=== PATIENT | female | born 1950 | race Caucasian/White ===

== ENCOUNTER → 2017-06-28 | Outpatient (CLI) | payer OTHER ==
[~2017-06-28] MED LIST: ALB18R INH; AMO500 PO; CLI150 PO; ESOM20CA31 PO; LEVO750T44 PO; OMEG-11 PO; PRED20TA6 PO; VITAMIN
== END ==
LOC: LAB 10:27
PROVIDERS: ATTEND Nurse Practitioner Family
DX: E83.119 Hemochromatosis, unspecified (principal)
CPT/HCPCS: 36415; 85014

== ENCOUNTER → 2017-09-06 | Outpatient (CLI) | payer OTHER ==
[2017-09-06 10:21] VITALS: BP 147/83
== END ==
LOC: SPU 07:44
PROVIDERS: ATTEND Nurse Practitioner Family
DX: E83.119 Hemochromatosis, unspecified (principal)
CPT/HCPCS: 85027; 99195

== ENCOUNTER → 2017-11-26 | Outpatient (CLI) | payer OTHER ==
[2017-11-26 13:10] VITALS: BP 134/80
== END ==
LOC: SPU 08:13
PROVIDERS: ATTEND Nurse Practitioner Family
DX: E83.119 Hemochromatosis, unspecified (principal)
CPT/HCPCS: 36415; 85014

== ENCOUNTER → 2018-01-28 | Outpatient (CLI) | payer OTHER ==
[2018-01-28 13:21] VITALS: BP 142/86
[2018-01-28 13:58] VITALS: BP 115/89
== END ==
LOC: SPU 08:12
PROVIDERS: ATTEND Nurse Practitioner Family
DX: E83.119 Hemochromatosis, unspecified (principal)
CPT/HCPCS: 85014; 99195

== ENCOUNTER → 2018-04-22 | Outpatient (CLI) | payer OTHER ==
[2018-04-22 14:20] VITALS: BP 127/77
[2018-04-22 14:41] VITALS: BP 108/80
== END ==
LOC: SPU 08:06
PROVIDERS: ATTEND Nurse Practitioner Family
DX: E83.119 Hemochromatosis, unspecified (principal)
CPT/HCPCS: 85014; 99195

== ENCOUNTER → 2018-05-28 | Outpatient (CLI) | payer OTHER ==
--- NOTE | 2018-05-29 15:00 | RADIOLOGY IMAGING REPORT ---
FACILITY: [facility] PATIENT NAME: CAMILLE DOBBINS : [id number] MR: [id number] V: [id number] EXAM DATE: [id number] ORDERING PHYSICIAN: SUNNY CLEMENT TECHNOLOGIST: Olga Willingham PROCEDURE:BILATERAL DIGITAL SCREENING MAMMOGRAM WITH CAD ASSISTED INTERPRETATION & 3D TOMOSYNTHESIS COMPARISON:Prior mammograms dated 06/17/15, 03/09/13 INDICATIONS:SCREENING FINDINGS: A small amount of fibroglandular tissue is seen throughout the breasts. The parenchymal pattern has remained stable allowing for difference in mammographic technique & patient positioning. There is no evidence of malignant appearing mass, malignant appearing calcification or other secondary sign of malignancy in either breast. DIAGNOSTIC CATEGORY 1--NEGATIVE. RECOMMENDATIONS: ROUTINE MAMMOGRAM AND CLINICAL EVALUATION. IMPRESSION: BIRADS 1: Negative. No significant abnormality is seen. Dictated by: Vanita Babcock M.D. on 05/28/2018 at 16:39 Transcribed by: NAVDEEP on 05/29/2018 at 8:40 Approved by: Vanita Babcock M.D. on 05/29/2018 at 14:59 [facility]
== END ==
LOC: MAMO 00:18
PROVIDERS: ATTEND Nurse Practitioner Family
DX: Z12.31 Encounter for screening mammogram for malignant neoplasm of breast (principal); Z80.3 Family history of malignant neoplasm of breast
CPT/HCPCS: 77063; 77067

== ENCOUNTER → 2018-06-17 | Outpatient (CLI) | payer OTHER ==
[2018-04-22 14:41] VITALS: BP 108/80
== END ==
LOC: SPU 08:47
PROVIDERS: ATTEND Nurse Practitioner Family
DX: E83.119 Hemochromatosis, unspecified (principal)

== ENCOUNTER → 2018-06-27 | Outpatient (CLI) | payer OTHER | LOC: SPU 08:34 | PROVIDERS: ATTEND Nurse Practitioner Family | DX: E83.119 Hemochromatosis, unspecified (principal) | CPT/HCPCS: 85014 ==

== ENCOUNTER → 2018-07-30 | Outpatient (CLI) | payer OTHER ==
[2018-07-30 11:08] VITALS: BP 155/116
[2018-07-30 12:13] VITALS: BP 123/79
== END ==
LOC: SPU 07:14
PROVIDERS: ATTEND Nurse Practitioner Family
DX: E83.119 Hemochromatosis, unspecified (principal)
CPT/HCPCS: 85014; 99195

== ENCOUNTER → 2018-07-31 | Outpatient (CLI) | payer OTHER ==
--- NOTE | 2018-07-31 13:34 | RADIOLOGY IMAGING REPORT ---
FACILITY: [facility] PATIENT NAME: Steff Garza : 1950 MR: [id number] V: [id number] EXAM DATE: ORDERING PHYSICIAN: SUNNY CLEMENT TECHNOLOGIST: Location: [facility] - [place] Patient: Steff Garza : 1950 Visit/Account:[id number] Date of Sevice: 07/31/2018 Exam type: HIP LEFT History: Left hip pain Comparison: None. Findings: Three views of the left hip demonstrate a left hip arthroplasty that appears to be in good anatomic a lignment. There is no evidence of acute fracture dislocation or prosthetic loosening. Moderate to s evere degenerative changes of the right hip joint noted. There suggestion of mild soft tissue swelli ng about the femoral neck component. IMPRESSION: 1. Left hip arthroplasty appears to be in good anatomic alignment without evidence of acute fracture dislocation or prosthetic loosening. Mild soft tissue swelling is noted about the femoral neck comp onent. This could be indicative of a joint effusion. Clinical correlation needed Report Dictated By: Vanita Babcock MD at 07/31/2018 1:28 PM Report E-Signed By: Vanita Babcock MD at 07/31/2018 1:30 PM WSN:[email or web address]
--- NOTE | 2018-07-31 13:44 | RADIOLOGY IMAGING REPORT ---
FACILITY: [facility] - [place] PATIENT NAME: Steff Garza : 1950 MR: [id number] V: [id number] EXAM DATE: ORDERING PHYSICIAN: SUNNY CLEMENT TECHNOLOGIST: Location: [facility] - [place] Patient: Steff Garza : 1950 Visit/Account:[id number] Date of Sevice: 07/31/2018 Exam type: L-SPINE 2 OR 3 VIEW History: Low back pain Comparison: None. Findings: AP and lateral views lumbar spine demonstrate five lumbar type vertebral bodies. There is moderate t o severe disc space narrowing at L4-5 and L5-S1. Severe degenerative facet joint changes are seen at L5-S1. Mild disc space narrowing seen throughout remainder the lumbar spine. There is no evidence of acute fracture or subluxation. Incompletely imaged is a left hip arthroplasty. Vascular calcinat ion occasions are noted in the abdominal aorta IMPRESSION: 1. Extensive spondylotic changes lumbar spine most prominent at L4-5 and L5-S1 Report Dictated By: Vanita Babcock MD at 07/31/2018 1:30 PM Report E-Signed By: Vanita Babcock MD at 07/31/2018 1:38 PM WSN:[email or web address]
== END ==
LOC: RAD 12:31
PROVIDERS: ATTEND Nurse Practitioner Family
DX: M25.552 Pain in left hip (principal); Z96.642 Presence of left artificial hip joint; M47.896 Other spondylosis, lumbar region
CPT/HCPCS: 72100

== ENCOUNTER → 2018-10-23 | Outpatient (CLI) | payer OTHER ==
--- NOTE | 2018-10-23 12:49 | RADIOLOGY IMAGING REPORT ---
FACILITY: [facility] - [place] PATIENT NAME: Steff Garza : 1950 MR: [id number] V: [id number] EXAM DATE: ORDERING PHYSICIAN: YADIRA ADAMS TECHNOLOGIST: Location: [facility] - [place] Patient: Steff Garza : 1950 Visit/Account:[id number] Date of Sevice: 10/23/2018 EXAMINATION: PA and Lateral Chest 10/23/2018 11:03 AM HISTORY: Cough. Hypoxia. Smoking history. COMPARISON: 05/15/2017 FINDINGS: Cardiomediastinal contours: Normal Lungs and pleura: Essentially stable mildly prominent markings with a linear area of scarring in the lateral left midlung field. No acute pulmonary or pleural process. Bones/soft tissues: Mild spurring along the spine. IMPRESSION: No acute cardiopulmonary abnormality. Report Dictated By: Miky Enciso MD at 10/23/2018 12:40 PM Report E-Signed By: Miky Enciso MD at 10/23/2018 12:44 PM WSN:[email or web address]
== END ==
LOC: RAD 11:00
PROVIDERS: ATTEND Nurse Practitioner Family
DX: R05 Cough (principal); R06.02 Shortness of breath
CPT/HCPCS: 71046

== ENCOUNTER 2018-11-26 11:56 | Outpatient (RCR) | payer OTHER ==
[2018-11-26 12:07] VITALS: BP 134/78
== END 2018-12-29 11:36 | disposition home or self-care (01) ==
LOC: SPU 11:56
PROVIDERS: ATTEND Nurse Practitioner Family
DX: E83.119 Hemochromatosis, unspecified (principal)
CPT/HCPCS: 85014; 99195